=== PATIENT | female | born 1975 | race Caucasian/White ===

== ENCOUNTER → 2016-12-03 | Outpatient (CLI) | payer MEDICAID ==
[~2016-12-03] MED LIST: ASPIRIN 81MG TA81 MG PO; CIPRO 500MG TA500 MG PO; ETODOLAC400 MG PO; FLAGYL 500MG.500 MG PO; GABAPENTIN300 MG PO; HYDROCODONE-APA1 TA2 PO; KEFLEX 500MG.500 MG PO; LASIX20 MG PO; LEXAPRO 10 MG T10 MG PO; Mobic7.5 MG PO; NAPROSYN500 M1 PO; NORCO 325 MG-51 TAB PO; OMEPRAZOLE20 MG PO; PHENERGAN25 M3 PO; PREDNISONE50 MG PO; PYRIDIUM200 M2 PO; ROBITUSSIN120 ML/BOT PO; TRAZADONE HYDR100 MG PO; XANAX 1MG TABLET1 MG PO; ZOFRAN ODT4 MG PO; Zofran4 MG PO
[2016-12-03 17:42] LABS: HEMOGLOBIN 10.5 g/dL (12.2-16.2)
[2016-12-03 17:43] LABS: LYMPH # 1.4 K/mm3 (0.7-4.5); LYMPH % 20.7 % (10-50.0)
[2016-12-03 19:28] LABS: BUN 9 mg/dL (7-18)
[2016-12-03 19:40] LABS: GFR (ESTIMATED) 92 ML/MIN (59-)
[2016-12-05 09:38] LABS: HBsAg Screen Negative (Negative); Hep A Ab, IgM Negative (Negative); Hep B Core Ab, IgM Negative (Negative); Hep C Virus Ab <0.1 (0.0-0.9)
== END ==
LOC: LAB 17:17
PROVIDERS: Physician Assistant
DX: K76.9 Liver disease, unspecified (principal)